=== PATIENT | male | born 1990 | race African-American/Black ===

== ENCOUNTER 2024-07-30 07:22 | Emergency (ER) | payer OTHER ==
[~2024-07-30] VITALS: Ht 177.8 cm; Wt 86.2 kg
[~2024-07-30 07:22] MED LIST: MOTRIN800 MG PO; TRAMADOL HCL50 MG PO; VICODIN 5/500 505 MG PO
[2024-07-30] MEDS ORDERED: Acetaminophen/Oxycodone 5 MG/325 MG TABLET PO ONE (07:45)
[2024-07-30] MEDS ORDERED: PERCOCET 5-3251 EACH PO (08:35)
== END 2024-07-30 19:12 | disposition home or self-care (01) ==
LOC: ED 07:22
DX: S63.286A Dislocation of proximal interphalangeal joint of right little finger, initial encounter (principal); Z88.0 Allergy status to penicillin; Z87.891 Personal history of nicotine dependence; W01.0XXA Fall on same level from slipping, tripping and stumbling without subsequent striking against object, initial encounter; Y93.89 Activity, other specified; Y92.89 Other specified places as the place of occurrence of the external cause; Y99.8 Other external cause status